=== PATIENT | female | born 1965 | race Hispanic/Latino ===

== ENCOUNTER → 2024-08-09 | Outpatient (CLI) | payer BC | END | disposition home or self-care (01) | LOC: RAH 14:58 | PROVIDERS: ATTEND Nurse Practitioner Family | DX: Z12.31 Encounter for screening mammogram for malignant neoplasm of breast (principal) | CPT/HCPCS: 77067 ==

== ENCOUNTER → 2024-09-17 | Outpatient (CLI) | payer BC ==
--- NOTE | 2024-09-19 08:33 | HMCIMG ---
DIAGNOSTIC MAMMOGRAM HISTORY: ABN MAMMOGRAM COMPARISON: 08/09/2024 TECHNIQUE: Bilateral digital diagnostic mammogram was performed. No additional views were obtained. FINDINGS: Parenchymal density: There are scattered areas of fibroglandular density. There is a persistent 1.7 cm density upper outer quadrant of the right breast on the diagnostic mammogram images. This shows effacement on the focal spot compression views. There are no associated pathologic appearing calcifications. There is no architectural distortion. Mammogram appears otherwise unremarkable including negative left breast images. Right breast ultrasound was performed with particular attention to the upper outer quadrant. There are normal findings. There is normal-appearing parenchyma. There are no focal masses. There is no architectural distortion or acoustical shadowing. There are no visible cysts. Left breast ultrasound was performed and appears negative as well. IMPRESSION: 1. Nodular density upper outer quadrant right breast appears most consistent with asymmetric parenchyma rather than a focal mass, given effacement on spot compression views and negative ultrasound findings. 2. Recommend routine screening mammographic follow-up, next bilateral exam due July 2025. The patient was entered into a reminder system with a target due date for their next mammogram. BI-RADS CATEGORY 2: BENIGN FINDINGS Recommend monthly self breast exam as well as annual clinical examination. A negative x-ray should not delay biopsy if a dominant or clinically suspicious mass is present, since 8-10% of cancers are not identified by mammography. Dense breasts particularly, may obscure an underlying neoplasm. Some of these may be detected clinically and therefore, clinical examination is an essential part of breast evaluation.
--- NOTE | 2024-09-20 08:58 | HMCIMG ---
US BREAST BILATERAL REASON: UNSPECIFIED LUMP IN THE RT BREAST COMPARISON: None TECHNIQUE: Bilateral breast ultrasound was performed and compared to recent to diagnostic mammogram, 09/17/2024. FINDINGS: There is normal appearing breast parenchyma. There are no focal masses. There are no cysts. There are no areas of architectural distortion or acoustical shadowing. The nodular density seen on right breast mammogram was not identified on the ultrasound. There is a mildly prominent right axillary lymph node with a normal fatty replaced hilum. Exam is otherwise unremarkable IMPRESSION: 1. Negative bilateral ultrasound. 2. No focal mass identified in either breast.
== END | disposition home or self-care (01) ==
LOC: RAH 13:40
PROVIDERS: ATTEND Nurse Practitioner Family
DX: N63.11 Unspecified lump in the right breast, upper outer quadrant (principal); N63.21 Unspecified lump in the left breast, upper outer quadrant; R92.323 Mammographic fibroglandular density, bilateral breasts; N63.10 Unspecified lump in the right breast, unspecified quadrant
CPT/HCPCS: 77066

== ENCOUNTER 2024-10-30 10:35 | Emergency (ER) | payer OTHER, BC ==
[~2024-10-30] VITALS: Ht 162.6 cm; Wt 78.9 kg
[2024-10-30 10:37] VITALS: BP 136/84; PULSE 81; RESP 20; TEMP 97.6
[2024-10-30] MEDS ORDERED: ACET-2079 PO (10:51)
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
[2024-10-30] MEDS: HYDROcodone/APAP 5/325 1 TAB TABLET PO ONE (11:04)
[2024-10-30] MEDS: ketOROlac 15MG/ML VIAL (15MG/ML) IM ONE (11:05)
== END 2024-10-30 11:24 | disposition home or self-care (01) ==
LOC: EDH 10:35
DX: T21.11XA Burn of first degree of chest wall, initial encounter (principal); E11.9 Type 2 diabetes mellitus without complications; I10 Essential (primary) hypertension; X08.8XXA Exposure to other specified smoke, fire and flames, initial encounter; Y93.89 Activity, other specified; Y92.89 Other specified places as the place of occurrence of the external cause; Y99.8 Other external cause status
CPT/HCPCS: 99283; 96372; J1885